=== PATIENT | male | born 1990 | race Caucasian/White ===

== ENCOUNTER 2016-07-20 13:40 | Inpatient (IN) | payer BC, OTHER ==
[~2016-07-20] VITALS: Ht 167.6 cm; Wt 59.4 kg
[2016-07-21] MEDS ORDERED: ONDANSETRON ODT 4 MG TAB.RAPDIS SL PRN (00:15)
[2016-07-21] MEDS ORDERED: DICYCLOMINE HCL 20 MG TABLET PO PRN (00:15)
[2016-07-21] MEDS ORDERED: MIRALAX 17 GM POWD.PACK PO PRN (00:15)
[2016-07-21] MEDS ORDERED: ACETAMINOPHEN 325 MG TABLET PO PRN (00:15)
[2016-07-21] MEDS ORDERED: MAGNESIUM HYDROXIDE 30 ML LIQUID UDC PO PRN (00:15)
[2016-07-21] MEDS ORDERED: LOPERAMIDE HCL 2 MG CAPSULE PO PRN ×2 (00:15)
[2016-07-21] MEDS ORDERED: MAG HYDROX/AL HYDROX/SIMETH 30 ML LIQUID UDC PO PRN (00:15)
[2016-07-21] MEDS ORDERED: ONDANSETRON 4 MG/2 ML VIAL IM PRN (00:15)
[2016-07-21] MEDS ORDERED: BUPRENORPHINE HCL 2 MG TAB.SUBL SL PRN (00:15)
[2016-07-21] MEDS ORDERED: IBUPROFEN 400 MG TABLET PO PRN (00:15)
--- NOTE | 2016-07-21 00:30 | NUR ---
Intake office assessment; Patient is a 26 year old male, AOX4, presented to [facility] to Detoxify from Heroin , Meth., Marijuana. He is the primary source of information. Patient appears mildly intoxicated and appears to be anxious, but remains cooperative. Admitting vital signs are as follows; JH=583/90, HR=80, RR=16, SpO2=98% with RA, [id number], Height=56, denies any pain. Patient admitted that he Heroin, Meth , Marijuana prior to admission. Patient denies any allergies and denies history of seizures. Patient did not bring any home medications. Patient was educated regarding unit policies and protocols, verbalized understanding. Further assessment to be conducted when patient is up on the unit.
[2016-07-21 00:55] LABS: BASOPHILS # (AUTO) 0.1 K/uL (0.0-8.0); BASOPHILS % (AUTO) 0.7 % (0.0-2.0); EOSINOPHILS # (AUTO) 0.1 K/uL (0.0-0.7); EOSINOPHILS % (AUTO) 0.8 % (0.0-7.0); HEMATOCRIT 49.4 % (40-50); HEMOGLOBIN 16.9 G/DL (14.0-18.0); LYMPHOCYTES # (AUTO) 3.2 K/UL (0.8-4.8); LYMPHOCYTES % (AUTO) 31.5 % (20.5-51.5); MEAN CORPUSCULAR HGB CONC 34 g/dL (32.0-37.0); MEAN CORPUSCULAR VOLUME 84.7 FL (82.0-92.0); MONOCYTES # (AUTO) 0.5 K/UL (0.1-1.30); MONOCYTES % (AUTO) 5.1 % (0.0-11.0); NEUTROPHILS # (AUTO) 6.2 K/UL (1.8-8.9); NEUTROPHILS % (AUTO) 61.9 % (38.5-71.5); PLATELET COUNT (AUTO) 306 K/UL (150-450); RED BLOOD CELL COUNT(AUTO) 5.83 MIL/UL (4.7-6.1); RED CELL DISTRIBUTION WIDTH 12.2 % (11.5-14.5); WHITE BLOOD COUNT (AUTO) 10.1 K/UL (4.0-11.2)
--- NOTE | 2016-07-21 01:00 | NUR ---
ADMISSION NOTE : Pt. is 26 years old male admitted on 07/21/2016 at 00:49 for opiates, meth., marijuana dependency. Pt. is Full Code, NKA for food and meds, on Regular Diet. Pt. doesn't have Primary Care Provider, but states to be seen by Psychiatrist and take prescribed medications : [place], Clonidine, Suboxone. Pt. was able to provide urine drug screen , positive for opiates, amphetamine, cannabinoids. Pt. denies history of seizures, hospitalizations within past 30 days; denies vaccinations for more as 5 years, confirms multiple falls within past 12 months. At the time of admission patient denies pain or any discomfort, he used Heroin, Meth , Marijuana 6-8 hours ago. Pt denies SI/HI, cooperative. Pt. has history of visual hallucinations, last one in June 2016. Pt reports minimal anxiety, educated on relaxation techniques and oriented to unit. COWS=2. Pt denies pain or body aches. Skin intact, warm, color consistent, intact. Pupils PERRLA, 3 mm bilat. Lung sounds clear, pt denies cough or SOB. Heart rate regular, pt denies chest pain, no murmurs noted. No edema noted. Cap refill <3 sec. Bowel sounds active x 4, abdomen soft, non tender, pt denies n/v, last BM 07/20/16. Pt encouraged to drink and provided with PO fluids. Upon admission FY=390/90, HR=80, RR=16, SpO2=98% with RA, [id number], Height=56. Pt is provided with educational materials on Hep. C, substance abuse, falls and seizures; oriented to room and equipment, call light system shown with returned demonstration. Safety measures in place : bed on lowest position with side rails x2 up for safety, call light within reach. Will continue to monitor closely and offer help. SUBSTANCE ABUSE HISTORY IS FOLLOW : HEROIN IV QD 1gm since 07/07/2016, last use on 07/20/2016, uses since 2005 METH. smokes QD 0.5gm since 07/07/2016, last use on 07/20/2016, uses since 2005 MARIJUANA smokes QD 1gm since 2001, last use on 07/20/2016, Uses since 2001 Occasionally Klonopin since 2014 2 pills PO x3/week, last use on 07/18/2016 Occasionally Xanax since 2012 1 pill PO x2/week, last use on 07/18/2016 ETOH/Tequila since 2001 250ml x2/week , last use on 07/18/2016 Pt. smokes 20 cigarettes daily since 2001. PAST MEDICAL HISTORY : Anxiety Tx HISTORY : Detox. attempts : x5 06/2016 - at home , 3-4 days, relapsed. 04/2016- [facility], 5 days, left AMA. Rehabilitations attempts : x6 FAMILY HISTORY : Father is functioning alcoholic. Other members of family are healthy and clean.
[2016-07-21 01:06] LABS: ALANINE AMINOTRANSFERASE 20 U/L (16-63); ALBUMIN 4.8 g/dL (3.4-5.0); ALKALINE PHOSPHATASE 127 U/L (50-136); AMYLASE 57 U/L (25-115); ASPARTATE AMINOTRANSFERASE 20 U/L (15-37); BILIRUBIN,TOTAL 0.7 mg/dL (0.2-1.0); CALCIUM 9.6 mg/dL (8.5-10.1); CHLORIDE 98 mmol/L (98-107); CREATININE 1.2 mg/dL (0.6-1.3); GFR 73 mL/min (>60); GLUCOSE 83 mg/dL (74-106); LIPASE 97 U/L (73-393); MAGNESIUM 2.5 mg/dL (1.8-2.4); POTASSIUM 3.9 mmol/L (3.5-5.1); SODIUM SERUM 141 mmol/L (136-145); TOTAL PROTEIN, SERUM 8.9 g/dL (6.4-8.2); UREA NITROGEN, BLOOD 15 mg/dL (7-18)
[2016-07-21 01:17] LABS: THYROID STIMULATING HORMONE 2.558 mIU/mL (0.358-3.740)
[2016-07-21 01:25] LABS: ETHANOL < 3 MG/DL (0-0)
[2016-07-21 01:26] LABS: HIV-1 p24 ANTIGEN NON REACTIVE (NONREACTIVE); HIV-1/2 ANTIBODY NON REACTIVE (NONREACTIVE)
[2016-07-21 01:30] LABS: CARBON DIOXIDE 33 mmol/L (21-32)
[2016-07-21 01:40] LABS: *AMPHETAMINE, URINE POSITIVE (NEGATIVE); *BARBITURATE, URINE NEGATIVE (NEGATIVE); *CANNABINOID, URINE POSITIVE (NEGATIVE); *COCCAINE, URINE NEGATIVE (NEGATIVE); *OPIATE, URINE POSITIVE (NEGATIVE); *PHENCYCLIDINE SCREEN,URINE NEGATIVE (NEGATIVE)
[2016-07-21] MEDS ORDERED: BUPR1FIL3 SL (02:01)
[2016-07-21] MEDS ORDERED: HYDR-3326 PO (02:01)
[2016-07-21] MEDS ORDERED: CLON0.1T PO (02:01)
[2016-07-21 04:00] VITALS: BP 121/74
--- NOTE | 2016-07-21 06:46 | NUR ---
END OF SHIFT NOTE : Pt. is 26 years old male admitted on 07/21/2016 at 00:49 for opiates, meth., marijuana dependency. Pt. is Full Code, NKA for food and meds, on Regular Diet. Pt. doesn't have Primary Care Provider, but states to be seen by Psychiatrist and take prescribed medications : [place], Clonidine, Suboxone. Pt. was able to provide urine drug screen , positive for opiates, amphetamine, cannabinoids. Pt denies SI/HI, cooperative. Pt. has history of visual hallucinations, last one in June 2016. Pt reports minimal anxiety. Pt denies pain or body aches. Skin intact, warm, color consistent, intact. Pupils PERRLA, 3 mm bilat. Lung sounds clear, pt denies cough or SOB. Heart rate regular, pt denies chest pain, no murmurs noted. No edema noted. Cap refill <3 sec. Bowel sounds active x 4, abdomen soft, non tender, pt denies n/v, last BM 07/20/16. No PRNs were given during my shift. V/S remain WNL. RR=16, even and unlabored, lungs clear upon auscultation, abdomen soft and non- distended. Pt denies nausea, vomiting and diarrhea. LAST COWS= 2 at 0400 , INTAKE= 899 ml, voided x 2, slept 2 hours. Safety measures in place : bed on lowest position with side rails x2 up for safety, call light within reach. Will continue to monitor closely and offer help.
--- NOTE | 2016-07-21 07:05 | NUR ---
Start Of Shift Received report from police shift commander nurse. Patient is a 26 years old male admitted on 07/21/2016 for opiates, meth and marijuana dependency. Patient is Full Code, NKA on Regular Diet denies any food or drug allergies and continues on fall precautions. Patient has history of visual hallucinations, last one in June 2016. Pt reports minimal anxiety stated that he was not able to sleep well last night and would like to sleep in. Patient slept a total of 2 hours last night. Pt denies pain or body aches at this time. Skin intact. No PRN's were given during the police shift commander. LAST COWS= 2 at 0400. Safety measures in place : bed on lowest position with side rails x2 up for safety, call light within reach. Will continue to monitor and provide support.
[2016-07-21 08:00] VITALS: BP 100/62
[2016-07-21] MEDS: MULTIVITAMINS,THERAPEUTIC TABLET PO SCH (09:00)
[2016-07-21] MEDS ORDERED: TUBERCULIN,PURIF.PROT.DERIV. 5 TU/0.1 ML TEST ID ONE (09:00)
--- NOTE | 2016-07-21 09:00 | NUR ---
PPD Refusal Pt refused PPD, Patient educated about the hospital policies and that a PPD or a CXR is required upon admission. Pt requested to have a CXR instead. MD notified and aware, order placed for CXR 1 view for medical clearance for active TB. All safety measures in place will continue to monitor and provide support.
[2016-07-21 12:00] VITALS: BP 118/77
--- NOTE | 2016-07-21 12:25 | NUR ---
PRN MEDICATION Pt c/o Anxiety and body aches presented with agitation, restlessness, sweats, dilated pupils and stomach cramps pts COWS score was a 13 requested something for relief, non-pharmacological techniques interventions provided x3 and were not effective. PRN Subutex 4mg SL, waited in room until medication dissolved. Educated pt about s/e of medication and when to contact nurse. all needs met, all safety measures in place, will continue to monitor.
--- NOTE | 2016-07-21 13:00 | NUR ---
PRN REASSESSMENT PRN Subutex 4mg Effective pt reported a decrease in sweats, and agitation presented with a COWS score of 9, all needs met all safety measures in place, will continue to monitor and provide support.
[2016-07-21] MEDS: GABAPENTIN 300 MG CAPSULE PO SCH (15:21)
--- NOTE | 2016-07-21 19:07 | NUR ---
End Of Shift Endorsed report to overnight babysitter nurse. Patient is a 26 years old male admitted on 07/21/2016 for opiates, meth and marijuana dependency. Patient is Full Code, NKA on Regular Diet denies any food or drug allergies and continues on fall precautions. Pt will begin his 4 day Subutex taper tomorrow. Pt is currently on PRN medications in case of withdrawals. Pt remained in his room most of the day, Pt received a chest X-ray to rule out active TB, Results came back negative. Patient encouraged adequate PO fluid intake as tolerated. Upon assessment patient presented with c/o chills, dilated pupils, stomach cramps, mild anxiety, mild agitation and barely sweating with his last COWS score was a 8 @1600. Detox medication effective at reducing withdrawal symptoms. Patient encouraged to attend group therapies/sessions to learn new coping skills to recent relapse, patient denies SI/HI. Pt ate all of his meals his total fluid intake was 1745 with 4 void and 0 bowel movement ,Pt received PRN Subutex 4mg for COWS score of 13 medication was effective. Safety measures in place. Call light kept within reach. Patient endorsed to overnight babysitter nurse, all pertinent information discussed.
[2016-07-21 20:00] VITALS: BP 116/64
--- NOTE | 2016-07-21 20:00 | NUR ---
Start of Shift Pt is a 26 year old male admitted for Opiate dependence, placed on 4 day Subutex taper. Pt also reported using meth and Marijuana. PMH: Anxiety, NKA, regular diet, fall precautions and full code. Upon assessment, pt reports anxiety, body/muscle aches, skin noted with moderate sweat - face flushed, respirations even/unlabored, denies SOB/chest pain, denies n/v/d, bowel sounds active x4, abdomen soft. Safety measures in place, call light within reach, side rails up x2, bed locked and in low position. Will continue to monitor. Addendum: 07/23/16 at 0039 by FELICITA BELL RN CORRECTION: THIS IS START OF SHIFT FOR DATE 07/22/20161999
--- NOTE | 2016-07-21 20:00 | NUR ---
START OF SHIFT NOTE PATIENT IN ROOM, RESTING. PATIENT REPORTS GENERALIZED MUSCLE ACHES 7/10, WHEN PATIENT FOR ANY N/V, SWEATING AND ABDOMINAL CRAMPING, PATIENT STATES "NOT YET",MOSTLY BODY ACHES". RECEIVED REPORT FROM DAY SHIFT NURSE. PATIENT IS A 26 YEAR OLD MALE, ADMITTED FOR HEROIN/METH/MARIJUANA DEPENDENCE. PATIENT IS FULL CODE, REGULAR DIET AND NO KNOWN ALLERGY. PATIENT WAS PLACED ON 4 DAYS SUBUTEX TAPER TO START TOMORROW. PRN AVAILABLE. PATIENT REPORTS PMH OF ANXIETY. PATENT IS ON 1 GRAM IV DAILY SINCE 2005, METH 0.5 SINCE 2005, MARIJUANA 1 GRAM SINCE 2001. PATIENT ALSO USES KLONOPIN , XANAX, ETH (TEQUILA) OCCASIONALLY. PATIENT SMOKES 20 CIGARETTES DAILY. PATIENT IS ON FALL PRECAUTION. SKIN INTACT. PATIENT WAS GIVEN PRN SUBUTEX DURING THE DAY FOR COWS 13. LAST COWS 8. SAFETY MEASURES IN PLACE. CALL LIGHT IN REACH. WILL CONTINUE TO MONITOR
[2016-07-21] MEDS: diphenhydrAMINE 50 MG CAPSULE PO PRN (20:54)
[2016-07-21] MEDS: METHOCARBAMOL 750 MG TABLET PO PRN (20:54)
--- NOTE | 2016-07-21 20:54 | NUR ---
PRN ROBAXIN AND BENADRYL ADMINISTRATION PATIENT C/O GENERALIZED BODY ACHES 09/20 AND REQUESTS FOR SLEEP AID. PRN ROBAXIN AND BENADRYL GIVEN. WILL MONITOR FOR EFFECTIVENESS
[2016-07-21] MEDS: CLONIDINE HCL 0.1 MG TABLET PO PRN (21:00)
[2016-07-21] MEDS ORDERED: GABAPENTIN 300 MG CAPSULE PO SCH (21:00)
--- NOTE | 2016-07-21 21:00 | NUR ---
PRN CLONIDINE ADMINISTRATION PATIENT REPORTS SWEATING. PRN CLONIDINE GIVEN. WILL MONITOR FOR EFFECTIVENESS
--- NOTE | 2016-07-21 21:54 | NUR ---
PRN KARTHIKYL/CORTES RE-ASSESSMENT PATIENT IN BED WITH EYES CLOSED. NO S/S OF DISTRESS. RESPIRATION EVEN AND UNLABORED. SAFETY MEASURES IN PLACE. CALL LIGHT IN REACH. WILL CONTINUE TO MONITOR.
--- NOTE | 2016-07-21 22:54 | NUR ---
PRN CLONIDINE RE-ASSESSMENT PATIENT IN BED WITH EYES CLOSED. NO S/S OF DISTRESS. WILL CONTINUE TO MONITOR.
[2016-07-22] VITALS: BP 117/56
[2016-07-22 04:00] VITALS: BP 98/62
--- NOTE | 2016-07-22 07:16 | NUR ---
END OF SHIFT NOTE MONITORED PATIENT THROUGHOUT THE NIGHT. PATIENT REPORTED GENERALIZED MUSCLE ACHES 7/10 AND SWEATING DURING SHIFT. WHEN PATIENT WAS ASKED FOR ANY N/V AND ABDOMINAL CRAMPING, PATIENT STATES "NOT YET". PATIENT IS A 26 YEAR OLD MALE, ADMITTED FOR HEROIN/METH/MARIJUANA DEPENDENCE. PATIENT IS FULL CODE, REGULAR DIET AND NO KNOWN ALLERGY. PATIENT WAS PLACED ON 4 DAYS SUBUTEX TAPER TO START TODAY . PRN MEDICATION. AVAILABLE. PATIENT REPORTS PMH OF ANXIETY. PATENT IS ON 1 GRAM IV DAILY SINCE 2005, METH 0.5 SINCE 2005, MARIJUANA 1 GRAM SINCE 2001. PATIENT ALSO USES KLONOPIN , XANAX, ETH (TEQUILA) OCCASIONALLY. PATIENT SMOKES 20 CIGARETTES DAILY. PATIENT IS ON FALL PRECAUTION. SKIN INTACT. PATIENT WAS GIVEN PRN CLONIDINE AT 2099, ROBAXIN AND BENADRYL AT 2053, EFFECTIVE. PATIENT COMPLIANT WITH MEDICATION. PATIENT IN ROOM MOST OF THE SHIFT. ENCOURAGE TO ATTEND AND PARTICIPATE IN GROUPS, WILL TRY TODAY PER PATIENT. SAFETY MEASURES IN PLACE. CALL LIGHT IN REACH. WILL CONTINUE TO MONITOR. SLEPT 11 HOURS. FLUID INTAKE 947 ML. VOIDED X 2 . NO BM. LAST COWS 1 .
--- NOTE | 2016-07-22 07:20 | NUR ---
Start Of Shift Received report from shift production supervisor nurse. Patient is a 26 years old male admitted for opiates, meth and marijuana dependency. Patient is Full Code, Regular Diet denies any food or drug allergies and continues on fall precautions. Pt reports some some minor body aches and anxiety, presented with sweats and dilated pupils, Patient stated that he got a much better sleep this night than yesterday. Patient slept a total of 11 hours last night. Skin intact. Pt A&Ox4 with even unlabored breathing at 17. Pt received PRN Robaxin, Benadryl and Clonidine last night, all medications noted effective per shift production supervisor nurse.. LAST COWS= 1 taken at 0400. Safety measures in place, bed on lowest position with side rails x2 up for safety, call light within reach. Will continue to monitor and provide support.
[2016-07-22 08:00] VITALS: BP 120/66
[2016-07-22] MEDS ORDERED: 4 DAY TAPER BUPRENORPHINE -SERENITY PROTOCOL SL PRN (09:00)
[2016-07-22] MEDS: MULTIVITAMINS,THERAPEUTIC TABLET PO SCH (09:09)
[2016-07-22] MEDS: GABAPENTIN 300 MG CAPSULE PO SCH ×3 (09:09→21:15)
[2016-07-22] MEDS: BUPRENORPHINE HCL 2 MG TAB.SUBL SL SCH ×3 (09:09→21:16)
[2016-07-22 12:00] VITALS: BP 127/77
[2016-07-22 14:12] LABS: HCV AB <0.1 s/co ratio (0.0-0.9); HEPATITIS B CORE AB, IgM Negative (Negative); HEPATITIS B SURFACE AG Negative (Negative)
[2016-07-22 16:00] VITALS: BP 116/71
--- NOTE | 2016-07-22 19:00 | NUR ---
End Of Shift Endorsed report to precision inspector nurse. Patient is a 26 years old male admitted on 07/21/2016 for opiates, meth and marijuana dependency. Patient is Full Code, NKA on Regular Diet denies any food or drug allergies and continues on fall precautions. Pt continues his 4 day Subutex taper, tolerating well. Patient encouraged adequate PO fluid intake as tolerated. Upon assessment patient presented with c/o chills, dilated pupils, mild anxiety, and barely sweating with his last COWS score was a 5 @1600. Detox medication effective at reducing withdrawal symptoms. Patient encouraged to attend group therapies/sessions to learn new coping skills to recent relapse, patient denies SI/HI. Pt ate all of his meals his total fluid intake was 1150 with 2 void and 0 bowel movement Pt did not receive any PRN medications during my shift. Safety measures in place. Call light kept within reach. Patient endorsed to precision inspector nurse, all pertinent information discussed.
[2016-07-22 20:00] VITALS: BP 115/68
--- NOTE | 2016-07-22 20:00 | NUR ---
Start of Shift Pt is a 26 year old male admitted for Opiate dependence, placed on 4 day Subutex taper. Pt also reported using meth and Marijuana. PMH: Anxiety, NKA, regular diet, fall precautions and full code. Upon assessment, pt reports anxiety, body/muscle aches, skin noted with moderate sweat - face flushed, respirations even/unlabored, denies SOB/chest pain, denies n/v/d, bowel sounds active x4, abdomen soft. Safety measures in place, call light within reach, side rails up x2, bed locked and in low position. Will continue to monitor.
[2016-07-22] MEDS: CLONIDINE HCL 0.1 MG TABLET PO PRN (23:29)
[2016-07-22] MEDS: diphenhydrAMINE 50 MG CAPSULE PO PRN (23:29)
--- NOTE | 2016-07-22 23:29 | NUR ---
PRN Administration Pt reported anxiety, body aches, chills. Pt requested aid to help him sleep. Clonidine 0.1mg PRN and Benadryl 50mg PRN administered. Safety measures in place. Will continue to monitor.
[2016-07-23] VITALS: BP 121/84
--- NOTE | 2016-07-23 | NUR ---
Vital Signs BP 121/84, pulse 86, resp 14, temp 98.1, Spo2 99%, no pain 0/10 COWS deferred d/t pt sleeping, to assess while awake as ordered. Safety measures in place, will continue to monitor
--- NOTE | 2016-07-23 00:29 | NUR ---
PRN Reassessment Upon reassessment, Pt is sleeping, eyes closed, respirations even/unlabored, no s/s of acute distress noted. Safety measures in place. Will continue to monitor.
[2016-07-23 04:00] VITALS: BP 105/69
--- NOTE | 2016-07-23 04:00 | NUR ---
Vital Signs BP 105/69, pulse 67, resp 18, temp 97.6, Spo2 9706%, no pain 0/10 COWS deferred d/t pt sleeping, to assess while awake as ordered. Safety measures in place, will continue to monitor.
--- NOTE | 2016-07-23 07:00 | NUR ---
End of Shift Pt is a 26 year old male admitted for Opiate dependence, placed on 4 day Subutex taper. Pt also reported using meth and Marijuana. PMH: Anxiety, NKA, regular diet, fall precautions and full code. During shift, pt reported anxiety, body/muscle aches, skin noted with moderate sweat - face flushed - scheduled taper medications administered, effective in management of s/s of withdrawal, COWS 5. Clonidine 0.1mg PRN and Benadryl 50mg PRN administered for anxiety/body aches and difficulty sleeping, effective. Pt slept for 6 hours, intake of 500 ml PO and voids x1. Safety measures in place, call light within reach, side rails up x2, bed locked and in low position. Endorsed to day shift nurse.
--- NOTE | 2016-07-23 07:09 | NUR ---
Start Of Shift Received report from car shifter nurse. Patient is a 26 years old male admitted for opiates, meth and marijuana dependency. Patient is Full Code, Regular Diet denies any food or drug allergies and continues on fall precautions. Pt reports some and anxiety, presented with sweats and dilated pupils, Patient stated that he feels much better today than yesterday. Patient slept a total of 6 hours last night. Skin intact. Pt A&Ox4 with even unlabored breathing at 17. Pt received PRN Benadryl and Clonidine last night, all medications noted effective per car shifter nurse. LAST COWS= 5 taken at 0400. Safety measures in place, bed on lowest position with side rails x2 up for safety, call light within reach. Will continue to monitor and provide support.
[2016-07-23 08:00] VITALS: BP 111/66
[2016-07-23] MEDS: GABAPENTIN 300 MG CAPSULE PO SCH ×3 (08:37→22:27)
[2016-07-23] MEDS: MULTIVITAMINS,THERAPEUTIC TABLET PO SCH (08:37)
[2016-07-23] MEDS ORDERED: BUPRENORPHINE HCL 2 MG TAB.SUBL SL SCH (09:00)
[2016-07-23 12:00] VITALS: BP 117/69
[2016-07-23] MEDS: BUPRENORPHINE HCL 2 MG TAB.SUBL SL SCH ×2 (14:43→22:28)
[2016-07-23] MEDS: CLONIDINE HCL 0.1 MG TABLET PO PRN ×2 (14:43→22:39)
--- NOTE | 2016-07-23 14:52 | NUR ---
PRN MEDICATION Pt c/o Anxiety presented with agitation and restlessness, requested something for relief, non-pharmacological techniques interventions provided x3 such as a breathing technique which were not effective. PRN Clonidine 0.1mg administered PO, educated pt about s/e of medication and when to contact nurse. all needs met, all safety measures in place, will continue to monitor.
[2016-07-23 16:00] VITALS: BP 127/81
--- NOTE | 2016-07-23 16:09 | NUR ---
PRN REASSESSMENT Medication effective pt reported a decrease in anxiety stating "i feel much better now" all needs met will continue to monitor. Addendum: 07/23/16 at 1610 by JED WILLS RN Actual Reassessment time [id number]
--- NOTE | 2016-07-23 19:03 | NUR ---
End Of Shift Endorsed report to graphite disk assembler nurse. Patient is a 26 years old male admitted on 07/21/2016 for opiates, meth and marijuana dependency. Patient is Full Code, NKA on Regular Diet denies any food or drug allergies and continues on fall precautions. Pt continues his 4 day Subutex taper, tolerating well. Patient encouraged adequate PO fluid intake as tolerated. Upon assessment patient presented with c/o chills, mild anxiety, and barely sweating with his last COWS score was a 3 @1600. Detox medication effective at reducing withdrawal symptoms. Patient encouraged to attend group therapies/sessions to learn new coping skills to recent relapse, patient denies SI/HI. Pt ate all of his meals his total fluid intake was 3168ml with 2 void and 0 bowel movement Pt received PRN Clonidine during the day shift for anxiety medication was effective. Safety measures in place. Call light kept within reach. Patient endorsed to graphite disk assembler nurse, all pertinent information discussed.
--- NOTE | 2016-07-23 19:15 | NUR ---
START OF SHIFT Received 26 year old male patient admitted on 07/21/16 for Heroin and Meth dependency. Pt is full code with NKA. He reports a PMHx of anxiety. He reports using heroin 1 gram IV daily for 11 years. Last dose was 1 gram IV on 07/20/16. Meth 0.5 gram smoking daily since 2005. Last dose was 0.5 gram on 07/20/16. Marijuana 1 gram smoking since 2001. Last dose was 1 gram on 07/20/16. Pt reports he occasionally uses Klonopin since 2004. 2 pills PO 3 times per week. Xanax 1 pill daily for 2 weeks. and ETOH 250 mL x2 per week. Pt currently on 4 day Subutex taper and tolerating well. Per endorsement, pt received Clonidine. Pt is alert and oriented x4. Breathing is even and unlabored. Pt safe with bed locked in lowest position, side rails up x2 and call light within reach. Will continue to monitor.
[2016-07-23 20:00] VITALS: BP 111/63
[2016-07-23] MEDS: diphenhydrAMINE 50 MG CAPSULE PO PRN (22:38)
--- NOTE | 2016-07-23 22:38 | NUR ---
PRN BENADRYL/CLONIDINE Pt complains of anxiety/agitation. Observed to be restless in room. Pt complains of inability to fall asleep. PRN Benadryl and Clonidine administered as ordered. Respirations 16, breathing even and unlabored. Safety measures in place. Will monitor effectiveness.
--- NOTE | 2016-07-23 23:38 | NUR ---
PRN BENADRYL/CLONIDINE REASSESSMENT PRN medications effective. Pt lying comfortably in bed with eyes closed and is asleep. No facial grimacing noted. Respirations 16. Breathing is even and unlabored, safety measures in place. Will monitor.
--- NOTE | 2016-07-24 | NUR ---
VITALS 0000 vitals refused. Risks/benefits explained x3. Pt still refused. Respirations 16, breathing is even and unlabored. Safety measures in place. Will monitor. Addendum: 07/24/16 at 0419 by MACKENZIE PARSONS RN COWS DEFERRED. COWS deferred d/t order is Q4H while awake. Pt is lying in bed with eyes closed noted to be asleep. Respirations 16, breathing even and unlabored. Safety measures in place. Will monitor.
--- NOTE | 2016-07-24 04:00 | NUR ---
VITALS REFUSED/ COWS DEFERRED 0400 vitals refused by pt. Risks/benefits explained x3, pt still refused. COWS deferred d/t pt lying in bed with eyes closed, noted to be asleep. Respirations 16, breathing is even and unlabored. Safety measures in place. Will continue to monitor.
--- NOTE | 2016-07-24 07:13 | NUR ---
END OF SHIFT Pt is a 26 year old male patient admitted on 07/21/16 for Heroin and Meth dependency. Pt is full code with NKA. He reports a PMHx of anxiety. Pt currently receiving 4 day Subutex taper and tolerating well. Pt received PRN Clonidine and Benadryl. He complained of withdrawal symptoms of sweats, and anxiety but reports medications are effective in relieving his symptoms as evidenced by decreased COWS of 2. He slept a total of 5 hours, Intake: 1151 mL, Void: x3, BM: 0. COWS: 2. Pt is alert and oriented x4. Breathing is even and unlabored. Pt safe with bed locked in lowest position, side rails up x2 and call light within reach. Endorsed to oncoming shift.
[2016-07-24 08:00] VITALS: BP 109/61
--- NOTE | 2016-07-24 08:05 | NUR ---
START OF SHIFT: RECEIVED PT LAYING IN BED WITH EYES CLOSED. RESPIRATIONS EVEN AND UNLABORED.BED LOCKED AND LOW. CALL NEW IN REACH. WILL CONTINUE TO PROVIDE SAFE AND SUPPORTIVE ENVIRONMENT.
[2016-07-24] MEDS: MULTIVITAMINS,THERAPEUTIC TABLET PO SCH (10:14)
[2016-07-24] MEDS: GABAPENTIN 300 MG CAPSULE PO SCH ×3 (10:15→21:58)
--- NOTE | 2016-07-24 10:15 | NUR ---
ADMINISTERED MEDS LATE PT DID NOT WANT TO WAKE UP EARLIER.
[2016-07-24] MEDS: BUPRENORPHINE HCL 2 MG TAB.SUBL SL SCH ×3 (10:16→21:58)
--- NOTE | 2016-07-24 10:27 | NUR ---
PT C/O CHILLS,SWEATS AND MILD ANXIETY. HE STATES HE SLEPT WELL. COWS 2. SUBUTEX TAPER IN PROGRESS.
[2016-07-24 12:00] VITALS: BP 103/63
[2016-07-24] MEDS: CLONIDINE HCL 0.1 MG TABLET PO PRN ×2 (15:08→21:58)
--- NOTE | 2016-07-24 15:15 | NUR ---
PRN CLONIDINE GIVEN FOR REPORTED CHILLS AND SWEATS.
[2016-07-24 16:00] VITALS: BP 110/78
--- NOTE | 2016-07-24 18:09 | NUR ---
END OF SHIFT: PT CONTINUES ON SUBUTEX TAPER.LAST COWS 3. HE C/O MILD BODY ACHES,CHILLS AND SOME ANXIETY THIS AM AND STATES DETOX MEDS ARE EFFECTIVE. HE ATTENDED GROUPS AND INTERACTED WITH PEERS. PRN CLONIDINE GIVEN AND EFFECTIVE FOR CHILLS AND SWEATS. PT IS COMPLIANT WITH MEDS AND TREATMENT PLAN. VS WNL. ENCOURAGED PT TO INCREASE FLUID INTAKE TO ASSIST IN FACILITATING DETOX PROCESS. WILL PASS SHIFT REPORT TO ONCOMING NIGHT NURSE
--- NOTE | 2016-07-24 19:15 | NUR ---
START OF SHIFT Received 26 year old male patient admitted on 07/21/16 for Heroin and Meth dependency. Pt is full code with NKA. He reports a PMHx of anxiety. He reports using heroin 1 gram IV daily for 11 years. Last dose was 1 gram IV on 07/20/16. Meth 0.5 gram smoking daily since 2005. Last dose was 0.5 gram on 07/20/16. Marijuana 1 gram smoking since 2001. Last dose was 1 gram on 07/20/16. Pt reports he occasionally uses Klonopin since 2004. 2 pills PO 3 times per week. Xanax 1 pill daily for 2 weeks. and ETOH 250 mL x2 per week. Pt currently on 4 day Subutex taper and tolerating well. Per endorsement, pt received PRN Clonidine for complaints of sweats and chills. Pt is alert and oriented x4. Breathing is even and unlabored. Pt safe with bed locked in lowest position, side rails up x2 and call light within reach. Will continue to monitor.
[2016-07-24 20:00] VITALS: BP 98/62
[2016-07-24] MEDS: diphenhydrAMINE 50 MG CAPSULE PO PRN (21:58)
--- NOTE | 2016-07-24 21:58 | NUR ---
PRN CLONIDINE/BENADRYL Pt complains of chills,sweats and anxiety. Pt complains of inability to fall asleep. PRN Clonidine and Benadryl administered as ordered. Respirations 16, breathing even and unlabored. Safety measures in place. Will monitor effectiveness.
--- NOTE | 2016-07-24 22:58 | NUR ---
PRN CLONIDINE/BENADRYL REASSESSMENT PRN medications effective. Pt lying comfortably in bed with eyes closed and is asleep. No facial grimacing noted. Safety measures in place. Will continue to monitor .
--- NOTE | 2016-07-25 | NUR ---
VITALS REFUSED/ COWS DEFERRED 0000 vitals refused by pt. Risks/benefits explained x3. Pt still refused. COWS deferred d/t pt lying in bed with eyes closed and is asleep. Respirations 16. Breathing even and unlabored. Safety measures in place. Will monitor.
--- NOTE | 2016-07-25 04:00 | NUR ---
VITALS REFUSED/ COWS DEFERRED 0000 vitals refused by pt. Risks/benefits explained x3. Pt still refused. COWS deferred d/t pt lying in bed with eyes closed and is asleep. Respirations 16. Breathing even and unlabored. Safety measures in place. Will continue to monitor.
--- NOTE | 2016-07-25 07:10 | NUR ---
END OF SHIFT Pt is a 26 year old male patient admitted on 07/21/16 for Heroin and Meth dependency. Pt is full code with NKA. He reports a PMHx of anxiety. Pt currently onday 06/15 of his Subutex taper and tolerating well. At 2158 pt received PRN Clonidine and Benadryl for chills and anxiety, and Benadryl for inability to sleep. He slept a total of 6 hrs, Intake: 1,000 mL, Void: x2, BM: 0, COWS: 3. Pt remains alert and oriented x4. Breathing is even and unlabored. Pt safe with bed locked in lowest position, side rails up x2 and call light within reach. Endorsed to oncoming shift.
[2016-07-25 08:00] VITALS: BP 112/65
--- NOTE | 2016-07-25 08:00 | NUR ---
START OF SHIFT: RECEIVED PT LAYING IN BED ASLEEP. RESPIRATIONS EVEN AND UNLABORED. BED LOCKED AND LOW POSITION. CALL NEW IN REACH. WILL CONTINUE TO MONITOR.
[2016-07-25] MEDS ORDERED: BUPRENORPHINE HCL 2 MG TAB.SUBL SL SCH (09:00)
[2016-07-25] MEDS: MULTIVITAMINS,THERAPEUTIC TABLET PO SCH (09:00)
[2016-07-25] MEDS: GABAPENTIN 300 MG CAPSULE PO SCH ×3 (09:00→20:55)
--- NOTE | 2016-07-25 09:05 | NUR ---
AM CIWA DEFERRED PT IS ASLEEP.
--- NOTE | 2016-07-25 10:00 | NUR ---
PT REFUSES MEDICATIONS AND REFUSES TO WAKE UP. HE STATES HE NEEDS TO SLEEP AND IS ASKING TO BE LEFT ALONE.
[2016-07-25 12:00] VITALS: BP 112/64
--- NOTE | 2016-07-25 12:00 | NUR ---
PT A/O X 4 ATTENDING ACTIVITIES AND GROUPS. COWS 3. HE REPORTS SOME BODY ACHES AND MILD ANXIETY. WILL CONTINUE TO MONITOR AND OFFER SUPPORT.
[2016-07-25] MEDS: CLONIDINE HCL 0.1 MG TABLET PO PRN ×2 (15:12→20:55)
[2016-07-25] MEDS: HYDROXYZINE PAMOATE 25 MG CAPSULE PO PRN (15:12)
--- NOTE | 2016-07-25 15:15 | NUR ---
PRN CLONIDINE AND PRN VISTARIL GIVEN FOR REPORTED ANXIETY,SWEATS AND CHILLS.WILL MONITOR EFFECTIVENESS.
[2016-07-25 16:00] VITALS: BP 118/72
--- NOTE | 2016-07-25 16:10 | NUR ---
PRN CLONIDINE AND VISTARIL EFFECTIVE PT STATES HIS ANXIETY HAS LESSENED AND CHILLS AND SWEATS HAVE SUBSIDED.
--- NOTE | 2016-07-25 18:50 | NUR ---
END OF SHIFT: PT CONTINUES ON SUBUTEX TAPER.LAST COWS 3.PT REFUSED AM DOSE OF SUBUTEX AND MADE AWARE. HE C/O SWEATS, CHILLS AND ANXIETY THIS AFTERNOON.HE ATTENDED GROUPS AND INTERACTED WITH PEERS. PRN CLONIDINE GIVEN AND EFFECTIVE FOR CHILLS AND SWEATS. VISTARIL GIVEN FOR ANXIETY. ENCOURAGED PT TO INCREASE FLUID INTAKE TO ASSIST IN FACILITATING DETOX PROCESS. WILL PASS SHIFT REPORT TO ONCOMING NIGHT NURSE.
--- NOTE | 2016-07-25 19:15 | NUR ---
START OF SHIFT Received 26 year old male patient admitted on 07/20/16 for Heroin, Meth, Marijuana and occasional use of Klonpin, Xanax and ETOH. Pt is full code with NKA. He reports a PMHx of anxiety. He reports using Heroin 1 gram IV daily since 2005. Last dose was 1 gram on 07/20/16. Meth 0.5 gram smoking daily since 2005. Last dose was 0.5 gram on 07/20/16. Marijuana 1 gram smoking daily since 2001. Last dose was 1 gram on 07/20/16. Pt was placed on 4 day Subutex taper started on 07/22/16 and tolerated well. Per endorsement, pt received PRN Clonidine and Vistaril. Pt is alert and oriented x4, breathing is even and unlabored. Pt is safe with bed locked in lowest position, side rails up x2 and call light within reach. Will continue to monitor.
[2016-07-25 20:00] VITALS: BP 107/71
[2016-07-25] MEDS: diphenhydrAMINE 50 MG CAPSULE PO PRN (20:55)
--- NOTE | 2016-07-25 20:55 | NUR ---
PRN CLONIDINE/BENADRYL Pt complains of anxiety and inability to sleep. PRN Clonidine and Benadryl administered as ordered. Breathing is even and unlabored. Respirations 16. Safety measures in place. Will monitor effectiveness.
--- NOTE | 2016-07-25 21:55 | NUR ---
PRN CLONIDINE/BENADRYL REASSESSMENT PRN Clonidine effective. Pt observed to be more calm and reports decrease in anxiety. PRN Benadryl no effective. Pt still awake lying in bed but appears drowsy and ready to sleep. Respirations 16, breathing is even and unlabored. Safety measures in place. Will monitor.
[2016-07-25] MEDS: METHOCARBAMOL 750 MG TABLET PO PRN (23:49)
--- NOTE | 2016-07-25 23:49 | NUR ---
PRN ROBAXIN Pt complains of body aches 07/21. PRN Robaxin administered as ordered. Breathing is even and unlabored. Safety measures in place. Will monitor effectiveness.
[2016-07-26] VITALS: BP 102/54
--- NOTE | 2016-07-26 00:49 | NUR ---
PRN ROBAXIN REASSESSMENT PRN medication effective. Pt lying in bed with eyes closed resting comfortably. No facial grimacing noted. Respirations 16, breathing is even and unlabored. Safety measures in place. Will continue to monitor.
--- NOTE | 2016-07-26 04:00 | NUR ---
VITALS REFUSED, COWS DEFERRED 0400 vitals refused by pt. Risks/benefits explained x3. Pt still refused. COWS deferred d/t pt lying in bed with eyes closed noted to be asleep. Respirations 16, breathing even and unlabored. Safety measures in place. Will monitor.
--- NOTE | 2016-07-26 07:15 | NUR ---
CONTINUATION OF CARE Pt is a 26 year old male patient admitted on 07/20/16 for Heroin, Meth, and occasional Klonopin, Xanax and ETOH dependency. He slept a total of 6 hrs, last COWS:3 at 0000. At 2054 he received PRN Clonidine and Benadryl. At 2348 he received PRN Robaxin. Pt in stable condition. Breathing is even and unlabored, respirations 16. Pt safe with bed locked in lowest position, side rails up x2 and call light within reach.
[2016-07-26 08:00] VITALS: BP 95/58
--- NOTE | 2016-07-26 08:51 | NUR ---
COWS DEFERRED 0800 COWS deferred d/t pt lying in bed with eyes closed and is asleep. Respirations 16, breathing is even and unlabored. Safety measures in place. Will continue to monitor.
[2016-07-26] MEDS: MULTIVITAMINS,THERAPEUTIC TABLET PO SCH (09:13)
[2016-07-26] MEDS: GABAPENTIN 300 MG CAPSULE PO SCH ×3 (09:13→21:40)
--- NOTE | 2016-07-26 09:30 | NUR ---
Received report from Hailey MOSER. Patient is a 26/M admitted to [facility] on 07/20/2016 for Opiate withdrawal. Patient also reports using Amphetamines, marijuana, and occasionally benzodiazepines. History of anxiety. Skin intact. NKA. Subutex taper complete. Last COWS score was 1. Patient is currently in bed resting with eyes closed. Patient easily aroused by speech. Side rails up x 2, bed in lowest position, and call light within reach. All needs currently met at this time. Will continue to monitor.
[2016-07-26 12:30] VITALS: BP 114/58
[2016-07-26 16:45] VITALS: BP 126/70
--- NOTE | 2016-07-26 19:30 | NUR ---
START OF SHIFT NOTE: Endorsed by night nurse nurse. SBAR report received. Patient is a 26 years old male admitted for opiates, meth and marijuana dependency. NKA, NKFA, Full Code, Regular Diet, Fall Precautions. Patient reports anxiety, nervousness, sweats , bone aches, tremors that can't felt. Patient remains compliant with medications and diet regime. Skin is intact, warm and moist by touch.. Patient is A&Ox4. VS stable with even and unlabored breathing at 18. COWS= 3 taken at 16:00. Safety measures in place, bed on lowest position with side rails x2 up for safety, call light within reach. Will continue to monitor closely.
--- NOTE | 2016-07-26 19:30 | NUR ---
END OF SHIFT NOTE Endorsed patient to [facility] Delgado. Patient was stable through out shift. Subutex taper complete. No PRN medications were administered. Vital signs stable. Patient reported that he is eager to discharge to the treatment facility and continue with his recovery. BM x 1 during shift. Last COWS score 3 with reported mild anxiety.
[2016-07-26 20:00] VITALS: BP 150/64
[2016-07-26] MEDS: CLONIDINE HCL 0.1 MG TABLET PO PRN (20:53)
--- NOTE | 2016-07-26 20:53 | NUR ---
PRN CLONIDINE PO ADMINISTRATION Patient c/o increased anxiety. Patient was assessed. COWS 5: Patient reports increased anxiety, nervousness, sweats , bone aches, tremors that can't felt., and low back pain. VS: T: 97'9; BP: 150/64; HR: 125; RR: 18; Room Air SPO2: 98%; Pain level "5/10". PRN Clonidine PO was discussed. Patient educated for actions, adverse reactions, and side effects of Clonidine. Patient's verbalizing understanding. PRN Clonidine PO 0.1 mg 1 tab. PO administrated as ordered with full glass of water. Patient tolerated well. Safety measure in the place by hospital policy: Call light within reach, bed in the lowest position and locked, padded rails up x2. Will continue to monitor closely.
--- NOTE | 2016-07-26 21:53 | NUR ---
REASSESSMENT Patient is sleeping. Breathing is even and unlabored. RR:14. PRN Clonidine PO was effective. Safety measure in the place by hospital policy: Call light within reach, bed in the lowest position and locked, padded rails up x2. Will continue to monitor closely.
[2016-07-26] MEDS: HYDROXYZINE PAMOATE 25 MG CAPSULE PO PRN (23:44)
[2016-07-26] MEDS: diphenhydrAMINE 50 MG CAPSULE PO PRN (23:44)
--- NOTE | 2016-07-26 23:44 | NUR ---
PRN BENADRYL PO AND PRN VISTARIL PO ADMINISTRATION Patient c/o increased anxiety and insomnia. Patient was assessed. VS WNL. PRN Benadryl PO and PRN Vistaril PO was discussed. Patient educated for actions, adverse reactions, and side effects of Benadryl and Vistaril. Patient's verbalizes understanding. PRN Benadryl PO 50 mg 1 tab PO and PRN Vistaril 50 mg 2 tabs. PO administrated as ordered with full glass of water. Patient tolerated well. Safety measure in the place by hospital policy: Call light within reach, bed in the lowest position and locked, padded rails up x2. Will continue to monitor closely.
[2016-07-27] VITALS: BP 114/63
--- NOTE | 2016-07-27 00:44 | NUR ---
REASSESSMENT Patient is sleeping. Breathing is even and unlabored. RR:16. PRN Benadryl PO and PRN Vistaril PO were effective. Safety measure in the place by hospital policy: Call light within reach, bed in the lowest position and locked, padded rails up x2. Will continue to monitor closely.
[2016-07-27 04:00] VITALS: BP 94/50
--- NOTE | 2016-07-27 06:58 | NUR ---
END OF SHIFT NOTE: Patient endorsed to incoming day shift nurse in stable condition. SBAR report given. Patient is a 26 years old male admitted for opiates, meth and marijuana dependency. NKA, NKFA, Full Code, Regular Diet, Fall Precautions Last COWS 3. Patient presents with anxiety, nervousness, sweats , tremors that can't felt. Skin is intact, warm and moist by touch.. Patient remains compliant with the treatment plan. Pt denies nausea, vomiting and diarrhea. PRN Clonidine PO, PRN Vistaril PO, and PRN Benadryl PO given during my shift and were effective. V/S remains WNL. RR=18, even and unlabored, lungs clear upon auscultation, abdomen soft and non- distended. Intake 1,310 ml, voided x 2, stool x1,slept 4 hours 30 minutes. Safety measures in place, bed on lowest position with side rails x2 up for safety, call light within reach. Will continue to monitor closely.
--- NOTE | 2016-07-27 07:43 | NUR ---
BEGINNING OF SHIFT Patient endorsement report received from radar engineering teacher nurse, all pertinent information discussed. patient is a 26 year old male admitted on 07/20/2016 with admitting Dx: opiate dependence. Patient completed Subutex taper and will continue under close observation. Patient with last cow score of: 3. as per radar engineering teacher received: clonidine, Benadryl and Vistaril, as per radar engineering teacher medications were effective. Patient slept for 7 hours. Patient received awake, alert and oriented x4, educated regarding plan of care for the day and medication regimen. safety measures in place. call light kept with in reach, will continue to monitor.
[2016-07-27] MEDS: MULTIVITAMINS,THERAPEUTIC TABLET PO SCH (09:12)
[2016-07-27] MEDS: GABAPENTIN 300 MG CAPSULE PO SCH ×3 (09:12→21:00)
[2016-07-27 09:32] VITALS: BP 116/63
[2016-07-27] MEDS ORDERED: Gabapentin PO (12:06)
[2016-07-27] MEDS ORDERED: METH-33 PO (12:06)
[2016-07-27] MEDS ORDERED: HYDR-3895 PO (12:06)
[2016-07-27 13:01] VITALS: BP 136/81
[2016-07-27] MEDS: HYDROXYZINE PAMOATE 25 MG CAPSULE PO PRN (13:35)
[2016-07-27] MEDS: CLONIDINE HCL 0.1 MG TABLET PO PRN ×2 (13:39→21:06)
--- NOTE | 2016-07-27 13:40 | NUR ---
PRN VISTARIL Pt complains of increased anxiety. Pt encouraged to use nonpharmacological methods to decrease anxiety but reports it is ineffective. PRN Clonidine and PRN Vistaril administered as ordered. Primary nurse to reassess.
--- NOTE | 2016-07-27 14:40 | NUR ---
VISTARIL REASSESSMENT Patient reports medication effective, feels less anxiety, will continue to monitor.
[2016-07-27 17:39] VITALS: BP 107/62
--- NOTE | 2016-07-27 18:57 | NUR ---
START OF SHIFT NOTE: Endorsed by stitch cleaner nurse. SBAR report received. Patient is a 26 years old male admitted for opiates, meth and marijuana dependency. Placed on 5 Day Subutex taper, and tolerated well. Patient recently completed Subutex Taper without adverse effects. Patient remains compliant with treatment plan, medications, and diet regime. NKA, NKFA, Full Code, Regular Diet . Upon endorsement, patient is A&Ox4. COWS 4.: Patient reports anxiety, nervousness, sweats , bone aches, tremors that can't felt Patient denies SI/HI. VS WNL. Breathing is even and unlabored. Patient denies SOB, cough and chest pain. Bowel Sounds are active in all 4 quadrants. Last BM was "07/27/16 afternoon". Abdomen is soft and non-distended, non-tender. Skin is intact, warm and moist by touch. Patient attended group activities. Encouraged to fluids intake as tolerated. Patient will discharging tomorrow. UDS test results placed in the chart. Safety measures in the place by hospital policy: call light within reach, bed in the lowest position and locked, bed padded rails up x2. Will continue to monitor closely.
--- NOTE | 2016-07-27 18:57 | NUR ---
END OF SHIFT Patient alert and oriented x4, vital signs stable during shift. Patient competed Subutex taper as ordered, well tolerated, no ASE noted. 0900 assessment patient presented with: mild anxiety with cow score of: 1; 1300 assessment patient presented with: heart rate of 91, mild anxiety with cow score of: 2. 1700 assessment patient presented with: mild anxiety with cow score of: 1. Patient was administered PRN: Vistaril at 1335 as ordered for anxiety ,medication effective one hour post administration. Patient encouraged adequate PO fluid intake as tolerated. Patient is scheduled for discharge tomorrow, noted self motivated towards sobriety. Encouraged to attend group therapies/sessions to learn new coping skills to prevent relapse, denies any SI/HI. Safety measures in place. call light kept with in reach. all needs met and rendered. patient endorsed to line patrolman nurse, all pertinent information discussed.
[2016-07-27 20:00] VITALS: BP 114/62
[2016-07-27] MEDS: diphenhydrAMINE 50 MG CAPSULE PO PRN (21:06)
--- NOTE | 2016-07-27 21:06 | NUR ---
PRN BENADRYL PO AND PRN CLONIDINE PO ADMINISTRATION Patient c/o increased anxiety and insomnia. Patient was assessed. VS WNL. PRN Benadryl PO and PRN Clonidine PO administrated as ordered with full glass of water. Patient tolerated well. Safety measure in the place by hospital policy: Call light within reach, bed in the lowest position and locked, padded rails up x2. Will continue to monitor closely.
[2016-07-27 21:07] LABS: *AMPHETAMINE, URINE NEGATIVE (NEGATIVE); *BARBITURATE, URINE NEGATIVE (NEGATIVE); *CANNABINOID, URINE POSITIVE (NEGATIVE); *COCCAINE, URINE NEGATIVE (NEGATIVE); *OPIATE, URINE NEGATIVE (NEGATIVE); *PHENCYCLIDINE SCREEN,URINE NEGATIVE (NEGATIVE)
--- NOTE | 2016-07-27 22:06 | NUR ---
REASSESSMENT Patient is sleeping. Breathing is even and unlabored. RR:14. PRN Benadryl PO and PRN Clonidine PO were effective. Safety measure in the place by hospital policy: Call light within reach, bed in the lowest position and locked, padded rails up x2. Will continue to monitor closely.
[2016-07-28] VITALS: BP 94/51
[2016-07-28 04:00] VITALS: BP 98/56
--- NOTE | 2016-07-28 06:51 | NUR ---
END OF SHIFT NOTE: Patient is a 26 years old male admitted to [facility] on for opiates, methamphetamine and marijuana dependency, finished ordered 4 day Subutex taper with tolerated well. Patient remains compliant with treatment plan, medications, and diet regime. NKA, NKFA, Full Code, Regular Diet, Fall Precautions Last CIWA 3. Patient presented with anxiety, nervousness, sweats , tremors that can felt. Skin is intact, warm and moist by touch. Pt denies nausea, vomiting and diarrhea. Patient denies SI/HI. PRN Clonidine PO and PRN Benadryl PO given during my shift and were effective. VS at 04:00: T: 97'6; HR: 74; RR: 16; RA O2Sat: 96%; BP: 98/56; Pain level: "0/10". Patient will discharge today, 07/28/16. UDS test results placed in the chart. Patient slept 5 hours; Intake 1,492 ml, voided x 2. Safety measure in the place by hospital policy. Call light within reach, bed in the lowest position and locked, padded rails up x2. Patient endorsed to day shift nurse in stable condition. Report given.
--- NOTE | 2016-07-28 07:48 | NUR ---
START OF SHIFT Received report from power and recovery shift engineer nurse. 26 year old male patient admitted on 07/20/16 for heroin, methamphetamine, and occasional benzo use. Pt is A/O x4. Pt has completed ordered taper and is medically cleared for discharge.Full code, NKA, regular diet. Hx of anxiety. Pt s/s of withdrawal have been managed well with ordered medications. V/S remain WNL throughout night. PRN Benadryl was administered, pt slept for 5 hours. Most recent COWS is 3. All needs met at this time. RR even and unlabored. Safety precautions are in place, will continue to monitor.
[2016-07-28 08:21] VITALS: BP 136/80
[2016-07-28 08:31] VITALS: BP 138/80
[2016-07-28] MEDS: CLONIDINE HCL 0.1 MG TABLET PO PRN (08:31)
[2016-07-28] MEDS: MULTIVITAMINS,THERAPEUTIC TABLET PO SCH (08:31)
[2016-07-28] MEDS: GABAPENTIN 300 MG CAPSULE PO SCH (08:31)
[2016-07-28] MEDS: HYDROXYZINE PAMOATE 25 MG CAPSULE PO PRN (08:31)
--- NOTE | 2016-07-28 08:33 | NUR ---
PRN VISTARIL AND CLONIDINE Pt complains of increased anxiety and is restless. Nonpharmacological methods implemented and ineffective. PRN Clonidine and Vistaril administered. Will reassess.
--- NOTE | 2016-07-28 09:20 | NUR ---
D/C NOTE Pt is A/O x4. V/S remain WNL. Pt denies SI/HI or hallucinations. Pt shows no s/s of acute withdrawal at this time, and is stable. has medically cleared pt for d/c . Education on Hepatitis C, smoking cessation and medication side effects provided. Pt verbalizes understanding. All pt belongings are in belonging bag, including prescriptions, pt did not have any home medications. Pt states Clonidine and Vistaril were effective. Refuses PNU vaccination. Pt is being accompanied by ACCOUNTS RECEIVABLE COORDINATOR at this time to be transported to rehab. All needs met.
== END 2016-07-28 09:20 | disposition home or self-care (01) | DRG 895 ==
LOC: SRC 23:54
PROVIDERS: ADMIT Internal Medicine; ATTEND Internal Medicine
PROC: HZ2ZZZZ Detoxification Services for Substance Abuse Treatment (ICD-10-PCS; principal; 2016-07-20)
PROC: HZ41ZZZ Group Counseling for Substance Abuse Treatment, Behavioral (ICD-10-PCS; 2016-07-24)
DX: F11.23 Opioid dependence with withdrawal (principal); E87.3 Alkalosis; F17.210 Nicotine dependence, cigarettes, uncomplicated; F13.10 Sedative, hypnotic or anxiolytic abuse, uncomplicated; F12.90 Cannabis use, unspecified, uncomplicated; F15.120 Other stimulant abuse with intoxication, uncomplicated; Z81.1 Family history of alcohol abuse and dependence; Z79.899 Other long term (current) drug therapy
CPT/HCPCS: 36415; 70030-TC; 71010; 80307; 80324; 80349; 80361; 83690; 83735; 84443; 85025; 86592; 86705; 86803; 87340; 87806; A4663; G6040-TC; Q0163